=== PATIENT | male | born 1935 | race Caucasian/White ===

== ENCOUNTER 2022-03-07 03:39 | Inpatient (IN) | payer MEDICARE, OTHER ==
[~2022-03-07] VITALS: Ht 172.7 cm; Wt 61.2 kg
[2022-03-07] MEDS ORDERED: IV NS 0.9% 500 ML BAG IV ONE (04:00)
--- NOTE | 2022-03-07 04:01 | NUR ---
TO ER BED 4. [id number] FROM HOME C/O DIARRHEA AND BLOOD IN URINE X 2 DAYS. PT DENIES ANY PAINFUL URINATION. V/S STABLE. CHANGED INTO GOWN. CONNECTED TO MONITOR. AWAITING MD CALDERON
--- NOTE | 2022-03-07 04:22 | NUR ---
20G IV LINE ESTABLISHED AT [facility] ([place]). BLOOD DRAWN AND SENT TO LAB.
[2022-03-07 04:23] LABS: BASOPHILS % (AUTO) 0.3 % (0.0-2.0); EOSINOPHILS % (AUTO) 1.2 % (0.0-6.0); HEMATOCRIT 30 % (39-51); HEMOGLOBIN 9.7 g/dL (13.5-17.5); LYMPHOCYTES # (AUTO) 0.6 K/uL (0.8-4.8); LYMPHOCYTES % (AUTO) 9.4 % (20.0-44.0); MEAN CORPUSCULAR HGB CONC 33 g/dl (31.0-36.0); MEAN CORPUSCULAR VOLUME 89 fL (80-96); MONOCYTES # (AUTO) 1.1 K/uL (0.1-1.30); MONOCYTES % (AUTO) 18.7 % (2.0-12.0); NEUTROPHILS # (AUTO) 4.3 K/uL (1.8-8.9); NEUTROPHILS % (AUTO) 70.4 % (43.0-81.0); PLATELET COUNT (AUTO) 134 K/uL (150-450); RED BLOOD CELL COUNT(AUTO) 3.34 MIL/uL (4.5-6.0); WHITE BLOOD COUNT (AUTO) 6.1 K/uL (4.3-11.0)
--- NOTE | 2022-03-07 04:28 | NUR ---
URINE COLLECTED AND SENT TO LAB
[2022-03-07 04:32] LABS: CALCIUM, SERUM 8.6 mg/dL (8.5-10.1); CARBON DIOXIDE 27 mmol/L (21-32); CHLORIDE 98 mmol/L (98-107); CREATININE 1.3 mg/dL (0.6-1.3); GLUCOSE 122 mg/dL (74-106); POTASSIUM 3.4 mmol/L (3.5-5.1); SODIUM SERUM 132 mmol/L (136-145); UREA NITROGEN, BLOOD 27 mg/dL (7-18)
[2022-03-07 04:38] LABS: ALANINE AMINOTRANSFERASE 12 U/L (12-78); ALBUMIN 3.2 g/dL (3.4-5.0); ALKALINE PHOSPHATASE 93 U/L (46-116); ASPARTATE AMINOTRANSFERASE 22 U/L (15-37); BILIRUBIN,DIRECT 0.3 mg/dL (0.0-0.2); BILIRUBIN,TOTAL 0.9 mg/dL (0.2-1.0); LIPASE 57 U/L (73-393); TOTAL PROTEIN, SERUM 7.5 g/dL (6.4-8.2)
--- NOTE | 2022-03-07 04:41 | NUR ---
CRITICAL LAB ; TROPONIN 84
[2022-03-07 04:44] LABS: BILIRUBIN,URINE NEGATIVE (NEGATIVE); COLOR,URINE DARK YELLOW (YELLOW); LEUKOCYTE ESTERASE ,URINE NEGATIVE (NEGATIVE); NITRITE, URINE NEGATIVE (NEGATIVE); PROTEIN,URINE 30 mg/dl (NEGATIVE); UGLUCOSE NEGATIVE (NEGATIVE); UROBILINOGEN,URINE 0.2 EU/dL (0.2)
--- NOTE | 2022-03-07 05:00 | NUR ---
PT TAKEN TO AND RETURNED FROM CT VIA [facility]
--- NOTE | 2022-03-07 05:07 | NUR ---
COVID SWAB COLLECTED AND SENT TO LAB
[2022-03-07] MEDS ORDERED: ENOXAPARIN SODIUM 60 MG/0.6 ML DISP.SYRIN SQ ONE ×2 (05:30→05:56)
[2022-03-07] MEDS ORDERED: TAMS-12 PO (06:44)
[2022-03-07] MEDS ORDERED: METF-440 PO (06:44)
[2022-03-07] MEDS ORDERED: FINA1TAB11 PO (06:44)
[2022-03-07] MEDS ORDERED: LEVO500T90 PO (06:44)
[2022-03-07] MEDS ORDERED: LEVO75TA7 PO (06:44)
[2022-03-07] MEDS ORDERED: TRAM50TA2 PO (06:44)
[2022-03-07] MEDS ORDERED: ATOR10TA PO (06:44)
[2022-03-07] MEDS ORDERED: PANT40TA2 PO (06:44)
[2022-03-07] MEDS ORDERED: IPRA3AMP23 IH (06:44)
[2022-03-07] MEDS ORDERED: FURO-145 PO (06:44)
[2022-03-07] MEDS ORDERED: ASPI-1169 PO (06:44)
[2022-03-07] MEDS ORDERED: PIPERACILLIN /TAZOBACTAM 3.375 G in IV D5W 50 ML IV ONE (07:00)
[2022-03-07] MEDS ORDERED: PIPERACILLIN /TAZOBACTAM 3.375 G VIAL IV ONE (07:12)
--- NOTE | 2022-03-07 07:27 | NUR ---
ASSESSED PT ON BED ASLEEP. EASILY AROUSABLE, NOT IN RESPIRATORY DISTRESS, V/S STABLE, KEPT RESTED AND COMFORTABLE. WILL CONTINUE TO MONITOR.
--- NOTE | 2022-03-07 08:32 | NUR ---
[facility] BED 115-1
--- NOTE | 2022-03-07 08:37 | NUR ---
CALLED [facility] FOR REPORT PER RN GLORIA THEY CANNOT ACCEPT THE PT BECAUSE THERE FULL AND SHORT OF NURSES.
[2022-03-07 08:39] LABS: BACTERIA,URINE Rare /HPF (None Seen); WBC,URINE 0-3 /HPF (0-3)
--- NOTE | 2022-03-07 08:39 | NUR ---
CALLED [facility] FOR BED AGAIN.
[2022-03-07 08:40] LABS: SQUAMOUS EPITHELIAL CELL,UR Rare /HPF (None Seen)
--- NOTE | 2022-03-07 08:49 | NUR ---
LAB CALLED [facility] MD NOTIFIED.
[2022-03-07] MEDS ORDERED: Medication Not On Formulary EA (Finasteride 1 MG) PO SCH (09:00)
[2022-03-07] MEDS ORDERED: METFORMIN 500 MG TABLET ONE (09:10)
[2022-03-07] MEDS ORDERED: LEVOTHYROXINE SODIUM 50 MCG TABLET ONE (09:10)
[2022-03-07] MEDS ORDERED: ATORVASTATIN 10 MG TABLET ONE (09:11)
[2022-03-07] MEDS ORDERED: LEVOTHYROXINE SODIUM 25 MCG TABLET ONE (09:11)
[2022-03-07] MEDS ORDERED: TAMSULOSIN 0.4 MG CAP.SR.24H ONE (09:11)
[2022-03-07] MEDS ORDERED: PANTOPRAZOLE 40 MG TABLET.DR PO ONE (09:11)
[2022-03-07] MEDS: ATORVASTATIN 10 MG TABLET PO SCH (09:12)
[2022-03-07] MEDS: TAMSULOSIN 0.4 MG CAP.SR.24H PO SCH (09:12)
[2022-03-07] MEDS: METFORMIN 500 MG TABLET PO SCH (09:12)
[2022-03-07] MEDS: PANTOPRAZOLE 40 MG TABLET.DR PO SCH (09:12)
[2022-03-07] MEDS: LEVOTHYROXINE SODIUM 75 MCG TABLET PO SCH (09:13)
[2022-03-07] MEDS ORDERED: IPRATROPIUM NEB FS 0.5 MG/2.5 ML AMPUL.NEB NEB PRN (09:30)
[2022-03-07 09:39] LABS: THYROID STIMULATING HORMONE 2.657 uIU/mL (0.358-3.74)
--- NOTE | 2022-03-07 09:55 | NUR ---
Admitted to Room 310-2 at 1030 per House Tamra Paredes
[2022-03-07] MEDS ORDERED: POTASSIUM CHLORIDE 20 MEQ TAB.PRT.SR PO SCH (10:00)
[2022-03-07] MEDS ORDERED: POTASSIUM CHLORIDE 20 MEQ TAB.PRT.SR PO ONE (10:24)
[2022-03-07] MEDS ORDERED: Z GUARD REMEDY 4 OZ OINT TP PRN (10:30)
[2022-03-07] MEDS ORDERED: MAGNESIUM HYDROXIDE 30 ML UDC PO PRN (10:30)
[2022-03-07] MEDS ORDERED: ZOLPIDEM TARTRATE 5 MG TABLET PO PRN (10:30)
[2022-03-07] MEDS ORDERED: ACETAMINOPHEN 325 MG TABLET PO PRN (10:30)
[2022-03-07] MEDS ORDERED: MAG HYDROX/AL HYDROX/SIMETH 30 ML UDC PO PRN (10:30)
[2022-03-07] MEDS ORDERED: ONDANSETRON HCL/PF 4 MG/2 ML VIAL IVP PRN (10:30)
--- NOTE | 2022-03-07 10:45 | NUR ---
AT BEDSIDE FOR EVAL.
[2022-03-07] MEDS ORDERED: VANCOMYCIN 1 GM in IV D5W 250ml IV SCH (11:00)
--- NOTE | 2022-03-07 11:01 | NUR ---
REPORT AT BEDSIDE GIVEN.
--- NOTE | 2022-03-07 11:05 | NUR ---
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 AO X 3, NEGATIVE RAPID COVID TEST. IN NO ACUTE DISTRESS OBSERVED. PATIENT NOTICED A FIB ON EKG, DR. MOREJON MADE AWARE. NNO AT THIS TIME.
--- NOTE | 2022-03-07 11:08 | NUR ---
REPORT GIVEN TO OSCAR JOHN FOR GABY.
[2022-03-07 13:00] LABS: EOSINOPHILS % (MANUAL) 1 % (0-4); LYMPHOCYTES % (MANUAL) 8 % (16-48); MONOCYTES % (MANUAL) 14 % (0-11.0); NEUTROPHILS % (MANUAL) 77 (42-76)
[2022-03-07] MEDS: IV NS 0.9% 1,000 ML IV PRN (13:18)
[2022-03-07] MEDS: methylPREDNISolone SOD SUCC 125 MG/2ML VIAL IV SCH ×2 (13:19→21:19)
[2022-03-07] MEDS: PIPERACILLIN /TAZOBACTAM 3.375 G in IV D5W 50 ML IV SCH ×2 (13:20→17:15)
[2022-03-07] MEDS: METRONIDAZOLE 500MG/ NS 100ML 500 MG in PREMIX 1 EA IV SCH ×2 (14:36→21:29)
[2022-03-07] MEDS: VANCOMYCIN HCL 125 MG/2.5 ML ORAL.SUSP PO SCH ×2 (14:37→18:06)
[2022-03-07 16:00] VITALS: BP 132/63
--- NOTE | 2022-03-07 18:52 | NUR ---
RN CLOSE NOTE PATIENT IN BED, IN NO ACUTE DISTRESS OBSERVED. RESPIRATION EVEN AND UNLABORED ON ROOM AIR. SKIN IS WARM TO TOUCH KEEP CLEAN//DRY, INTACT IV SITE, ORAL CARE PROVIDED. KEPT ELEVATED HOB FOR ENSURE AIRWAY AND ASPIRATION PRECAUTION. ALSO LOWEST POSITION OF THE BED FOR SAFETY. CALL LIGHT WITHIN REACH, WILL ENDORSE TO MD UROLOGIST.
--- NOTE | 2022-03-07 19:43 | NUR ---
SUPERVISORY AIR INTERCEPT CONTROLLER OPENING NOTES; RECEIVED PATIENT AWAKE IN BED, BED IN LOW POSITION CALL LIGHTS WITHIN REACH, NO COMPLAIN OF PAIN AND DISCOMFORT AT THIS TIME, PATIENT IS A/OX4 ABLE TO MAKE NEEDS KNOWN, NPO EXCEPT MEDS, ON TELE MONITORING [id number] WITH PVC, WITH IV LINE AT RAC#20 WITH ONGOING [id number] PER HOUR INFUSING WELL, PATIENT, ON ROOM AIR SATURATING WELL, NO SOB WAS OBSERVED, PATIENT KEPT CLEAN AND DRY ALL NEEDS MET WILL CONTINUE TO MONITOR.
[2022-03-07 20:00] VITALS: BP 120/70
[2022-03-07 21:12] VITALS: BP 120/70
[2022-03-08] VITALS (8 sets, daily range): BP systolic 103–127; BP diastolic 51–72
[2022-03-08] MEDS: PIPERACILLIN /TAZOBACTAM 3.375 G in IV D5W 50 ML IV SCH ×5 (00:16→23:26)
[2022-03-08] MEDS: VANCOMYCIN HCL 125 MG/2.5 ML ORAL.SUSP PO SCH ×4 (00:17→17:22)
[2022-03-08 04:10] LABS: OCCULT BLOOD STOOL POSITIVE (NEGATIVE)
[2022-03-08] MEDS: methylPREDNISolone SOD SUCC 125 MG/2ML VIAL IV SCH ×3 (05:25→21:21)
[2022-03-08] MEDS: METRONIDAZOLE 500MG/ NS 100ML 500 MG in PREMIX 1 EA IV SCH ×3 (05:25→21:20)
[2022-03-08] MEDS: IV NS 0.9% 1,000 ML IV PRN ×2 (05:31→18:55)
[2022-03-08 06:28] LABS: HEMATOCRIT 29 % (39-51); HEMOGLOBIN 9.5 g/dL (13.5-17.5); LYMPHOCYTES # (AUTO) 0.4 K/uL (0.8-4.8); MEAN CORPUSCULAR HGB CONC 33 g/dl (31.0-36.0); MEAN CORPUSCULAR VOLUME 88 fL (80-96); MONOCYTES # (AUTO) 0.1 K/uL (0.1-1.30); MONOCYTES % (AUTO) 2.8 % (2.0-12.0); NEUTROPHILS # (AUTO) 2.7 K/uL (1.8-8.9); NEUTROPHILS % (AUTO) 85.2 % (43.0-81.0); PLATELET COUNT (AUTO) 130 K/uL (150-450); RED BLOOD CELL COUNT(AUTO) 3.24 MIL/uL (4.5-6.0); WHITE BLOOD COUNT (AUTO) 3.2 K/uL (4.3-11.0)
--- NOTE | 2022-03-08 06:44 | NUR ---
PANEL SEWER CLOSING NOTES: PATIENT SLEEP IN BED COMFORTABLY, BED IN LOW POSITION, CALL LIGHTS WITHIN REACH, NO COMPLAIN OF PAIN AND DISCOMFORT AT THIS TIME, PATIENT ON O2 INHALATION AT 2LPM SATURATING WELL, WITH IV LINE AT RAC#20 WITH ONGOING NSS@ 100ML/HOUR INFUSING WELL, ON TELE MONITORING [id number] PATIENT ON NPO EXCEPT MEDS ON MONITORING FOR BLEEDING, PATIENT KEPT CLEAN AND DRY ALL NEEDS MET ENDORSE TO INCOMING SHIFT.
[2022-03-08 07:06] LABS: CALCIUM, SERUM 8.1 mg/dL (8.5-10.1); MAGNESIUM 2.4 mg/dL (1.8-2.4); POTASSIUM 3.6 mmol/L (3.5-5.1)
--- NOTE | 2022-03-08 07:49 | NUR ---
RN OPENING NOTE PATIENT IN BED RESTING, AWAKE, A/O X3. NO S/S OF PAIN NOTED AT THIS TIME. ON ROOM AIR, NO DISTRESS OR SHORTNESS OF BREATH NOTED. IV ACCESS RAC #20G, INTACT, PATENT AND FLUSHING WELL. PATIENT WITH EXTERNAL DEPUTY PROBATION OFFICER WITH CURRENT READING OF A-FIB AND HR 0F 64, NO CARDIAC DISTRESS NOTED. FALL AND SAFETY MEASURES IN PLACE, BED ALARM ON, BED IN LOW AND LOCK POSITION, CALL LIGHT AND TABLE WITHIN EASY REACH, SIDE RAILS UP X2. WILL CONTINUE TO MONITOR
[2022-03-08] MEDS: TAMSULOSIN 0.4 MG CAP.SR.24H PO SCH (08:37)
[2022-03-08] MEDS: METFORMIN 500 MG TABLET PO SCH (08:37)
[2022-03-08] MEDS: PANTOPRAZOLE 40 MG TABLET.DR PO SCH (08:37)
[2022-03-08] MEDS: LEVOTHYROXINE SODIUM 75 MCG TABLET PO SCH (08:38)
[2022-03-08] MEDS: ATORVASTATIN 10 MG TABLET PO SCH (08:38)
--- NOTE | 2022-03-08 09:15 | NUR ---
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 RECOMMENDATIONS MADE FOR SKIN PROTECTION. DISCUSSED WITH NURSING STAFF. 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 PT SEEING HIS ACO COORDINATOR AN OUTPATIENT. MD IN AGREEMENT WITH PLAN OF CARE.
[2022-03-08] MEDS: TRAMADOL HCL 50 MG TABLET PO PRN ×2 (11:13→20:36)
--- NOTE | 2022-03-08 15:05 | NUR ---
RN SOBIA HUNT FROM [facility] CALLED PATIENT IS POSITIVE FOR C. DIFFICILE. PATIENT IS IN CONTACT ISOLATION. WILL CONTINUE TO MONITOR. CHARGE NURSE AWARE.
--- NOTE | 2022-03-08 18:47 | NUR ---
RN CLOSING NOTE PATIENT IN BED RESTING, AWAKE, A/O X3. NO S/S OF PAIN NOTED AT THIS TIME. ON ROOM AIR, NO DISTRESS OR SHORTNESS OF BREATH NOTED. IV ACCESS RAC #20G, NS @ 100 ML/HR, INTACT, PATENT AND FLUSHING WELL. PATIENT WAS D/C FROM TELEMETRY. PATIENT IS CONTACT ISOLATION DUE TO POSITIVE C. DIFFICILE. ALL SCHEDULE MEDICATIONS ADMINISTERED. FALL AND SAFETY MEASURES IN PLACE, BED ALARM ON, BED IN LOW AND LOCK POSITION, CALL LIGHT AND TABLE WITHIN EASY REACH, SIDE RAILS UP X2. WILL ENDORSE TO COMPUTATIONAL PHYSICIST.
--- NOTE | 2022-03-08 20:00 | NUR ---
RN OPENING NOTE PATIENT IN BED RESTING, AWAKE, A/O X3. ON ROOM AIR TOLERATED WELL 98% O2SAT.NO SIGN SOB/DISTRESS NOTED. IV ACCESS RAC #20G, INTACT, PATENT AND FLUSHING WELL.SAFETY MEASURES IN PLACE, BED ALARM ON, BED IN LOW AND LOCK POSITION, CALL LIGHT AND TABLE WITHIN EASY REACH, SIDE RAILS UP X2. WILL CONTINUE TO MONITOR
[2022-03-09] MEDS: VANCOMYCIN HCL 125 MG/2.5 ML ORAL.SUSP PO SCH ×5 (00:36→23:40)
[2022-03-09] MEDS: METRONIDAZOLE 500MG/ NS 100ML 500 MG in PREMIX 1 EA IV SCH ×3 (04:23→20:28)
[2022-03-09] MEDS: methylPREDNISolone SOD SUCC 125 MG/2ML VIAL IV SCH ×3 (04:24→20:29)
[2022-03-09] MEDS: PIPERACILLIN /TAZOBACTAM 3.375 G in IV D5W 50 ML IV SCH ×4 (05:34→23:39)
[2022-03-09] MEDS: TRAMADOL HCL 50 MG TABLET PO PRN ×2 (06:17→21:00)
--- NOTE | 2022-03-09 07:06 | NUR ---
RN CLOSING NOTE PATIENT IN BED RESTING, AWAKE, A/O X3. NO S/S OF PAIN NOTED AT THIS TIME. ON ROOM AIR, NO DISTRESS OR SHORTNESS OF BREATH NOTED. IV ACCESS RAC #20G, NS @ 100 ML/HR, INTACT, PATENT AND FLUSHING WELL.PATIENT IS CONTACT ISOLATION DUE TO POSITIVE C. DIFFICILE. ALL SCHEDULE MEDICATIONS ADMINISTERED. FALL AND SAFETY MEASURES IN PLACE, BED ALARM ON, BED IN LOW AND LOCK POSITION, CALL LIGHT AND TABLE WITHIN EASY REACH, SIDE RAILS UP X2. WILL ENDORSE TO PICKER MACHINE OPERATOR.
[2022-03-09 07:11] LABS: CALCIUM, SERUM 8.6 mg/dL (8.5-10.1); CREATININE 1.1 mg/dL (0.6-1.3); POTASSIUM 3.5 mmol/L (3.5-5.1)
--- NOTE | 2022-03-09 07:45 | NUR ---
RN OPENING NOTE PATIENT IN BED RESTING, AWAKE, A/O X3. NO S/S OF PAIN NOTED AT THIS TIME. ON ROOM AIR, NO DISTRESS OR SHORTNESS OF BREATH NOTED. IV ACCESS RAC #20G, INTACT, PATENT AND FLUSHING WELL. FALL AND SAFETY MEASURES IN PLACE, BED ALARM ON, BED IN LOW AND LOCK POSITION, CALL LIGHT AND TABLE WITHIN EASY REACH, SIDE RAILS UP X2. WILL CONTINUE TO MONITOR
[2022-03-09 08:00] VITALS: BP 130/81
[2022-03-09] MEDS: PANTOPRAZOLE 40 MG TABLET.DR PO SCH (08:18)
[2022-03-09] MEDS: TAMSULOSIN 0.4 MG CAP.SR.24H PO SCH (08:18)
[2022-03-09] MEDS: LEVOTHYROXINE SODIUM 75 MCG TABLET PO SCH (08:18)
[2022-03-09] MEDS: METFORMIN 500 MG TABLET PO SCH (08:18)
[2022-03-09] MEDS: ATORVASTATIN 10 MG TABLET PO SCH (08:18)
[2022-03-09 11:07] LABS: BASOPHILS % (AUTO) 0.1 % (0.0-2.0); HEMATOCRIT 30 % (39-51); HEMOGLOBIN 9.7 g/dL (13.5-17.5); LYMPHOCYTES # (AUTO) 0.3 K/uL (0.8-4.8); LYMPHOCYTES % (AUTO) 8.6 % (20.0-44.0); MEAN CORPUSCULAR HGB CONC 33 g/dl (31.0-36.0); MEAN CORPUSCULAR VOLUME 89 fL (80-96); MONOCYTES # (AUTO) 0.1 K/uL (0.1-1.30); MONOCYTES % (AUTO) 3.3 % (2.0-12.0); NEUTROPHILS # (AUTO) 3.2 K/uL (1.8-8.9); PLATELET COUNT (AUTO) 149 K/uL (150-450); RED BLOOD CELL COUNT(AUTO) 3.35 MIL/uL (4.5-6.0); WHITE BLOOD COUNT (AUTO) 3.6 K/uL (4.3-11.0)
[2022-03-09 16:00] VITALS: BP 117/67
--- NOTE | 2022-03-09 18:39 | NUR ---
RN CLOSING NOTE PATIENT IN BED RESTING, AWAKE, A/O X3. NO S/S OF PAIN NOTED AT THIS TIME. ON ROOM AIR, NO DISTRESS OR SHORTNESS OF BREATH NOTED. IV ACCESS RAC #20G, NS @ 100 ML/HR, INTACT, PATENT AND FLUSHING WELL. CONTACT ISOLATION DUE TO POSITIVE C. DIFFICILE. ALL SCHEDULE MEDICATIONS ADMINISTERED. FALL AND SAFETY MEASURES IN PLACE, BED ALARM ON, BED IN LOW AND LOCK POSITION, CALL LIGHT AND TABLE WITHIN EASY REACH, SIDE RAILS UP X2. WILL ENDORSE TO INSTRUCTIONAL DESIGN TECHNOLOGIST.
--- NOTE | 2022-03-09 19:29 | NUR ---
RN OPENING NOTE PATIENT IN BED RESTING, AWAKE, A/O X3. NO S/S OF PAIN NOTED AT THIS TIME. ON ROOM AIR, NO DISTRESS OR SHORTNESS OF BREATH NOTED. IV ACCESS RAC #20G, NS @ 100 ML/HR, INTACT, PATENT AND FLUSHING WELL. CONTACT ISOLATION DUE TO POSITIVE C. DIFFICILE. FALL AND SAFETY MEASURES IN PLACE, BED ALARM ON, BED IN LOW AND LOCK POSITION, CALL LIGHT AND TABLE WITHIN EASY REACH, SIDE RAILS UP X2. WILL CONTINUE TO MONITOR.
[2022-03-09 19:53] VITALS: BP 117/84
--- NOTE | 2022-03-09 21:02 | NUR ---
MS RN NOTES PRN ULTRAM GIVEN FOR PAIN 7/10 ON A NUMERIC PAIN SCALE TOLERATED WELL. ALL NEEDS MET AT THIS TIME WILL CONTINUE TO MONITOR.
[2022-03-10] MEDS: TRAMADOL HCL 50 MG TABLET PO PRN ×2 (03:29→22:03)
--- NOTE | 2022-03-10 03:37 | NUR ---
MS RN NOTES PRN ULTRAM GIVEN FOR PAIN 8/10 ON A NUMERIC PAIN SCALE TOLERATED WELL. ALL NEEDS MET AT THIS TIME WILL CONTINUE TO MONITOR.
[2022-03-10] MEDS: methylPREDNISolone SOD SUCC 125 MG/2ML VIAL IV SCH ×3 (04:16→20:25)
[2022-03-10] MEDS: METRONIDAZOLE 500MG/ NS 100ML 500 MG in PREMIX 1 EA IV SCH (04:16)
[2022-03-10] MEDS: VANCOMYCIN HCL 125 MG/2.5 ML ORAL.SUSP PO SCH ×3 (05:08→17:07)
[2022-03-10] MEDS: PIPERACILLIN /TAZOBACTAM 3.375 G in IV D5W 50 ML IV SCH ×3 (05:08→17:07)
--- NOTE | 2022-03-10 06:40 | NUR ---
RN CLOSING NOTE PATIENT IN BED RESTING, AWAKE, A/O X3. NO S/S OF PAIN NOTED AT THIS TIME. ON ROOM AIR, NO DISTRESS OR SHORTNESS OF BREATH NOTED. IV ACCESS RAC #20G, NS @ 100 ML/HR, INTACT, PATENT AND FLUSHING WELL. CONTACT ISOLATION DUE TO POSITIVE C. DIFFICILE. FALL AND SAFETY MEASURES IN PLACE, BED ALARM ON, BED IN LOW AND LOCK POSITION, CALL LIGHT AND TABLE WITHIN EASY REACH, SIDE RAILS UP X2. PRN PAIN MEDICATION PROVIDED NEEDED. WILL ENDORSE CRE TO DAY SHIFT NURSE.
[2022-03-10 07:00] LABS: CALCIUM, SERUM 8.2 mg/dL (8.5-10.1); CREATININE 1.2 mg/dL (0.6-1.3); MAGNESIUM 2.4 mg/dL (1.8-2.4); PHOSPHORUS 3.6 mg/dL (2.5-4.9); POTASSIUM 3.4 mmol/L (3.5-5.1)
--- NOTE | 2022-03-10 07:31 | NUR ---
RN NOTES RESTING IN BED, AWAKE AND VERBALLY RESPONSIVE. CURRENTLY WATCHING TV AT THIS TIME. ABLE TO DRINK WATER AT BEDSIDE. BREATHING EVEN AND UNLABORED. SAFETY MEASURES IN PLACE. WILL CONTINUE TO MONITOR.
[2022-03-10 07:49] LABS: EOSINOPHILS % (AUTO) 0.1 % (0.0-6.0); HEMATOCRIT 29 % (39-51); HEMOGLOBIN 9.6 g/dL (13.5-17.5); LYMPHOCYTES # (AUTO) 0.3 K/uL (0.8-4.8); LYMPHOCYTES % (AUTO) 8.1 % (20.0-44.0); MEAN CORPUSCULAR HGB CONC 33 g/dl (31.0-36.0); MEAN CORPUSCULAR VOLUME 88 fL (80-96); MONOCYTES # (AUTO) 0.1 K/uL (0.1-1.30); MONOCYTES % (AUTO) 3.9 % (2.0-12.0); NEUTROPHILS % (AUTO) 87.9 % (43.0-81.0); PLATELET COUNT (AUTO) 150 K/uL (150-450); RED BLOOD CELL COUNT(AUTO) 3.32 MIL/uL (4.5-6.0); WHITE BLOOD COUNT (AUTO) 3.4 K/uL (4.3-11.0)
[2022-03-10 08:00] VITALS: BP 103/59
[2022-03-10] MEDS: ATORVASTATIN 10 MG TABLET PO SCH (08:13)
[2022-03-10] MEDS: METFORMIN 500 MG TABLET PO SCH (08:13)
[2022-03-10] MEDS: PANTOPRAZOLE 40 MG TABLET.DR PO SCH (08:13)
[2022-03-10] MEDS: TAMSULOSIN 0.4 MG CAP.SR.24H PO SCH (08:13)
[2022-03-10] MEDS: LEVOTHYROXINE SODIUM 75 MCG TABLET PO SCH (08:13)
[2022-03-10] MEDS ORDERED: POTASSIUM CHLORIDE 20 MEQ TAB.PRT.SR PO SCH (10:00)
--- NOTE | 2022-03-10 10:25 | NUR ---
RN NOTES CAREGIVER AT BEDSIDE TO SEE THE PATIENT.
[2022-03-10] MEDS: METRONIDAZOLE 500 MG TABLET PO SCH ×2 (12:06→16:05)
[2022-03-10] MEDS ORDERED: METR500T PO (12:06)
[2022-03-10] MEDS ORDERED: VANC125C11 PO (12:06)
--- NOTE | 2022-03-10 12:20 | NUR ---
RN NOTES DR. DIAZ AT BEDSIDE TO SEE THE PATIENT; MADE AWARE OF PLAN OF CARE. FOR GI CONSULT W/ DR. PETERSEN.
[2022-03-10 16:00] VITALS: BP 108/65
--- NOTE | 2022-03-10 18:48 | NUR ---
RN NOTES RAC IV LINE ACCIDENTALLY DISLODGED; NEW IV LINE ON RIGHT WRIST #[address], INTACT AND PATENT.
--- NOTE | 2022-03-10 19:42 | NUR ---
RN NOTES PATIENT IN BED RESTING, AWAKE AND VERBALLY RESPONSIVE, NOT IN ACUTE DISTRESS. KEPT CLEAN AND DRY DURING THE SHIFT. HAD BM X3, BUT LATEST BM WAS SOFT IN CONSISTENCY. ENDORSED TO CRIME SCENE INVESTIGATOR RN FOR GABY. SAFETY MEASURES MAINTAINED.
[2022-03-10 20:00] VITALS: BP 115/71
[2022-03-10] MEDS: IV NS 0.9% 1,000 ML IV PRN (23:36)
[2022-03-11] MEDS: PIPERACILLIN /TAZOBACTAM 3.375 G in IV D5W 50 ML IV SCH ×3 (00:01→11:29)
[2022-03-11] MEDS: VANCOMYCIN HCL 125 MG/2.5 ML ORAL.SUSP PO SCH ×3 (00:01→12:17)
[2022-03-11] MEDS: methylPREDNISolone SOD SUCC 125 MG/2ML VIAL IV SCH ×2 (05:30→12:20)
--- NOTE | 2022-03-11 06:45 | NUR ---
END OF SHIFT REPORT Patient is Alert Oriented x3. On Oxygen support 2L maintaining Oxygenation 96%, no c/o SOB. IVF infusing, on IV/PO abx. Afebrile. Had stool x2 soft mixed loose and mucoid. Patient remains on contact isolation Cdiff. Turned and repositioned, coccyx redness, discoloration possible moisture related. Wound consult. Offloading. Left foot pain managed with Tramadol. Patient has not voided > 8H. Bladder scan showed [address] Avalos. Lay cath inserted, obtained 1400 ml urine. Lay cath care. Fall precaution maintained. Will endorse to oncoming RN.
[2022-03-11 07:42] LABS: CALCIUM, SERUM 8.4 mg/dL (8.5-10.1); CREATININE 1.2 mg/dL (0.6-1.3); POTASSIUM 3.7 mmol/L (3.5-5.1)
--- NOTE | 2022-03-11 07:57 | NUR ---
MS RN OPENING NOTE Patient in bed, asleep. A/O x 3. On O2 at 2 LPM via NC, breathing evenly and unlabored. No SOB or s/s of distress noted. IV access on Right wrist #20 infusing NS at 100 ml/hr. Lay catheter in place draining to a yellow colored urine. Contact isolation maintained. Safety precautions in place: bed in low, locked position; siderails up x 2; shweta light within reach. Will continue to monitor.
[2022-03-11 08:00] VITALS: BP 125/68
[2022-03-11] MEDS: ATORVASTATIN 10 MG TABLET PO SCH (08:16)
[2022-03-11] MEDS: TAMSULOSIN 0.4 MG CAP.SR.24H PO SCH (08:16)
[2022-03-11] MEDS: LEVOTHYROXINE SODIUM 75 MCG TABLET PO SCH (08:16)
[2022-03-11] MEDS: METFORMIN 500 MG TABLET PO SCH (08:16)
[2022-03-11] MEDS: METRONIDAZOLE 500 MG TABLET PO SCH ×2 (08:17→12:20)
[2022-03-11] MEDS: PANTOPRAZOLE 40 MG TABLET.DR PO SCH (08:17)
[2022-03-11] MEDS: TRAMADOL HCL 50 MG TABLET PO PRN (13:06)
--- NOTE | 2022-03-11 13:06 | NUR ---
RN NOTE Patient complained of pain on Left foot, /, PRN Tramadol given. Will continue to monitor.
--- NOTE | 2022-03-11 14:00 | NUR ---
DISCHARGE NOTE Received order for discharge. Patient is A/O x 3, able to make needs known. On O2 at 2 LPM, breathing evenly and unlabored. No SOB or s/s of distress noted. All belongings accounted for, belonging sheet signed. Denies any pain or discomfort at this time. Discharge instructions given, patient verbalized understanding. Photos of wounds on Left foot, Left inner thigh, and scrotum taken and placed in chart. IV access removed, catheter tip intact. Pressure dressing applied, no signs of bleeding noted. ID band removed. Lay catheter left in place, as per MD order. Lay catheter bag drained. Exitcare folder given to analia Gonzalez. Patient left in stable condition via private car with analia Gonzalez.
== END 2022-03-11 13:30 | disposition home health service (06) | DRG 371 ==
LOC: ER 03:43 → TELE 08:37 → TELE1 08:47 → TELE 10:17 → MED 03-08 11:16
PROVIDERS: ADMIT Family Medicine; ATTEND Nurse Practitioner Acute Care
DX: A04.72 Enterocolitis due to Clostridium difficile, not specified as recurrent (principal); I21.A1 Myocardial infarction type 2; N17.0 Acute kidney failure with tubular necrosis; K51.30 Ulcerative (chronic) rectosigmoiditis without complications; E44.1 Mild protein-calorie malnutrition; E87.1 Hypo-osmolality and hyponatremia; L12.0 Bullous pemphigoid; K82.1 Hydrops of gallbladder; Z20.822 Contact with and (suspected) exposure to COVID-19; E86.1 Hypovolemia; I48.91 Unspecified atrial fibrillation; Z79.01 Long term (current) use of anticoagulants; Z87.891 Personal history of nicotine dependence; Z90.49 Acquired absence of other specified parts of digestive tract; D64.9 Anemia, unspecified; D69.6 Thrombocytopenia, unspecified; K57.90 Diverticulosis of intestine, part unspecified, without perforation or abscess without bleeding; D63.8 Anemia in other chronic diseases classified elsewhere; K21.9 Gastro-esophageal reflux disease without esophagitis; K76.0 Fatty (change of) liver, not elsewhere classified; J44.9 Chronic obstructive pulmonary disease, unspecified; N40.0 Benign prostatic hyperplasia without lower urinary tract symptoms; E87.6 Hypokalemia; E11.65 Type 2 diabetes mellitus with hyperglycemia; I10 Essential (primary) hypertension; E78.5 Hyperlipidemia, unspecified; E88.09 Other disorders of plasma-protein metabolism, not elsewhere classified; E03.9 Hypothyroidism, unspecified; R31.9 Hematuria, unspecified; K59.00 Constipation, unspecified
CPT/HCPCS: 36415; 71045-TC; 80048-TC; 80061-TC; 80076-TC; 81001; 82272-TC; 82728-TC; 83540-TC; 83690-TC; 83735-TC; 84100-TC; 84439-TC; 84443-TC; 84484-TC; 85025-TC; 85730-TC; 86850-TC; 87045-TC; 87081-TC; 87177; 87209; 89055; 93307-TC; 97116-TC; 97530-TC; A4216; C9803; G0378; J1650; J2543; J2930; J3370; J7030; J7040; J7060